=== PATIENT | female | born 1945 | race Caucasian/White ===

== ENCOUNTER → 2017-05-19 | Outpatient (CLI) | payer MEDICARE ==
--- NOTE | 2017-05-20 09:11 | MM ---
Reason for exam: screening (asymptomatic). Last mammogram was performed 1 year and 10 months ago. History: Patient is postmenopausal. Took estrogen for 2 months. Physical Findings: A clinical breast exam by your physician is recommended on an annual basis and results should be correlated with mammographic findings. MG Screening Mammo w CAD Bilateral CC and MLO view(s) were taken. Prior study comparison: July 23, 2015, bilateral MG screening mammo w CAD. May 01, 2009, bilateral digital screening mammogram. The breast tissue is heterogeneously dense. This may lower the sensitivity of mammography. Vascular calcifications. There is no discrete abnormality. No significant changes when compared with prior studies. ASSESSMENT: Benign, BI-RAD 2 RECOMMENDATION: Routine screening mammogram of both breasts in 1 year.
== END | disposition home or self-care (01) ==
LOC: RADMAMWWP 09:00
PROVIDERS: ATTEND Family Medicine
DX: Z12.31 Encounter for screening mammogram for malignant neoplasm of breast (principal)
CPT/HCPCS: 77067

== ENCOUNTER 2019-05-27 19:09 | Emergency (ER) | payer MEDICARE ==
[2019-05-27 19:26] VITALS: RESP 18
[2019-05-27] MEDS ORDERED: SODIUM CHLORIDE 0.9% 1,000 ML IV STA (19:47)
[2019-05-27] MEDS ORDERED: ONDANSETRON 4 MG/2 ML VIAL IVP STA (19:47)
[2019-05-27] MEDS ORDERED: guaiFENesin-DM 600/30MG 1 EACH TAB.ER.12H PO STA (19:47)
[2019-05-27] MEDS ORDERED: ACETAMINOPHEN TAB 500 MG TAB PO STA (20:02)
--- NOTE | 2019-05-27 20:02 | ED ---
Nausea/Vomiting/Diarrhea HPI - General Chief complaint: Nausea/Vomiting/Diarrhea Stated complaint: Vomiting Time Seen by Provider: 05/27/19 19:34 Source: patient, EMS Mode of arrival: EMS Limitations: no limitations - History of Present Illness Initial comments: 74-year-old female patient presents to the emergency department today for evaluation of upper respiratory symptoms and vomiting. Patient states she's been sick since last Wednesday with cough, nasal congestion, sore throat. Patient states she's been having on and off fevers and has been in bed for most of the week. Patient states that over the last couple days she has been vomiting. States she did have 6 episodes of vomiting today. States her stool soft but denies any diarrhea. States that she did seem feverish today as well. Denies taking any medication for her symptoms. Patient states she hasn't eaten or drank anything in the last few days due to symptoms. Patient states the muscles in her abdomen are sore from coughing however she denies any significant abdominal pain. Denies any hematuria, dysuria, urinary frequency, urinary urgency. Patient does have a past medical history significant for diabetes mellitus, hypothyroid, and high blood pressure. States that she is a previous smoker but denies any diagnosis of COPD or emphysema. Patient denies any recent rash, shortness breath, chest pain, abdominal pain, back pain, numbness, tingling, dizziness, weakness, headache, visual changes, or any other complaints. - Related Data Previous Rx's Medication Instructions Recorded Ondansetron [Zofran ODT] 4 mg PO Q8HR PRN #10 tab 05/27/19 Allergies Allergy/AdvReac Type Severity Reaction Status Date / Time Penicillins Allergy Anaphylaxis Verified 05/27/19 20:51 Sulfa (Sulfonamide Allergy Anaphylaxis Verified 05/27/19 20:51 Antibiotics) Review of Systems ROS Statement: Those systems with pertinent positive or pertinent negative responses have been documented in the HPI. ROS Other: All systems not noted in ROS Statement are negative. Past Medical History Past Medical History: CVA/TIA, Diabetes Mellitus, Hyperlipidemia, Hypertension, Memory Impairment, Thyroid Disorder Additional Past Medical History / Comment(s): DM 1984, CVA 2016, TIA's 2018, hypothyroid, shingles History of Any Multi-Drug Resistant Organisms: None Reported Past Surgical History: Appendectomy, Orthopedic Surgery, Tonsillectomy, Tubal Ligation Past Psychological History: No Psychological Hx Reported Smoking Status: Former smoker Past Alcohol Use History: None Reported Past Drug Use History: None Reported General Exam Limitations: no limitations General appearance: alert, in no apparent distress, other (Physical well- developed, well-nourished elderly female patient in no acute distress. Vital signs upon presentation are temperature 99.5F, pulse 71, respirations 18, blood pressure 197/83, pulse ox 99% on room air.) Eye exam: Present: normal appearance, PERRL, EOMI. Absent: scleral icterus, conjunctival injection, periorbital swelling ENT exam: Present: normal exam, normal oropharynx, mucous membranes moist Respiratory exam: Present: normal lung sounds bilaterally. Absent: respiratory distress, wheezes, rales, rhonchi, stridor Cardiovascular Exam: Present: regular rate, normal rhythm, normal heart sounds. Absent: systolic murmur, diastolic murmur, rubs, gallop, clicks GI/Abdominal exam: Present: soft, normal bowel sounds. Absent: distended, tenderness, guarding, rebound, rigid Neurological exam: Present: alert, oriented X3, CN II-XII intact Psychiatric exam: Present: normal affect, normal mood Skin exam: Present: warm, dry, intact, normal color. Absent: rash Course Vital Signs 05/27/19 05/27/19 19:12 22:10 Temperature 99.5 F 97.7 F Pulse Rate 71 64 Respiratory 18 18 Rate Blood Pressure 197/83 173/67 O2 Sat by Pulse 99 98 Oximetry Medical Decision Making - Medical Decision Making 74-year-old female patient presents to the emergency department today for evaluation of upper respiratory symptoms and vomiting. Patient was sick for the last week with upper respiratory symptoms. Over the last 2 days she has had several episodes of vomiting. Physical examination reveals clear equal lung sounds. Abdomen soft and nontender. Labs reviewed and are unremarkable. Chest x-ray shows no acute cardiopulmonary process. Patient did test positive for influenza A. Patient is given IV fluids and cough medication here in the emergency department. Upon reevaluation she does report improvement of sympt oms. Patient states that she is no longer feeling weak. She does feel comfortable being discharged home. She is instructed to increase fluids. Start clear liquid diet and advance as tolerated. She is instructed to take Zofran as needed. Return parameters were discussed in detail patient verbalizes understanding and agrees with this plan. - Lab Data Result diagrams: 05/27/19 20:38 05/27/19 20:38 Lab Results 05/27/19 05/27/19 05/27/19 Range/Units 20:30 20:38 20:38 WBC 2.6 L (3.8-10.6) k/uL RBC 4.08 (3.80-5.40) m/uL Hgb 11.1 L (11.4-16.0) gm/dL Hct 34.4 (34.0-46.0) % MCV 84.3 (80.0-100.0) fL MCH 27.3 (25.0-35.0) pg MCHC 32.4 (31.0-37.0) g/dL RDW 13.5 (11.5-15.5) % Plt Count 254 (150-450) k/uL Neutrophils % 58 % Lymphocytes % 29 % Monocytes % 8 % Eosinophils % 1 % Basophils % 1 % Neutrophils # 1.5 (1.3-7.7) k/uL Lymphocytes # 0.8 L (1.0-4.8) k/uL Monocytes # 0.2 (0-1.0) k/uL Eosinophils # 0.0 (0-0.7) k/uL Basophils # 0.0 (0-0.2) k/uL Sodium 136 L (137-145) mmol/L Potassium 4.5 (3.5-5.1) mmol/L Chloride 105 (98-107) mmol/L Carbon Dioxide 25 (22-30) mmol/L Anion Gap 6 mmol/L BUN 24 H (7-17) mg/dL Creatinine 0.96 (0.52-1.04) mg/dL Est GFR (CKD-EPI)AfAm 67 (>60 ml/min/1.73 sqM) Est GFR (CKD-EPI)NonAf 58 (>60 ml/min/1.73 sqM) Glucose 150 H (74-99) mg/dL Calcium 8.7 (8.4-10.2) mg/dL Total Bilirubin 0.4 (0.2-1.3) mg/dL AST 38 H (14-36) U/L ALT 20 (4-34) U/L Alkaline Phosphatase 88 (38-126) U/L Total Protein 6.5 (6.3-8.2) g/dL Albumin 3.6 (3.5-5.0) g/dL Lipase 52 (23-300) U/L Urine Color Urine Appearance (Clear) Urine pH (5.0-8.0) Ur Specific [place] (1.001-1.035) Urine Protein (Negative) Urine Glucose (UA) (Negative) Urine Ketones (Negative) Urine Blood (Negative) Urine Nitrite (Negative) Urine Bilirubin (Negative) Urine Urobilinogen (<2.0) mg/dL Ur Leukocyte Esterase (Negative) Influenza Type A RNA Detected H (Not Detectd) Influenza Type B (PCR) Not Detected (Not Detectd) 05/27/19 Range/Units 20:48 WBC (3.8-10.6) k/uL RBC (3.80-5.40) m/uL Hgb (11.4-16.0) gm/dL Hct (34.0-46.0) % MCV (80.0-100.0) fL MCH (25.0-35.0) pg MCHC (31.0-37.0) g/dL RDW (11.5-15.5) % Plt Count (150-450) k/uL Neutrophils % % Lymphocytes % % Monocytes % % Eosinophils % % Basophils % % Neutrophils # (1.3-7.7) k/uL Lymphocytes # (1.0-4.8) k/uL Monocytes # (0-1.0) k/uL Eosinophils # (0-0.7) k/uL Basophils # (0-0.2) k/uL Sodium (137-145) mmol/L Potassium (3.5-5.1) mmol/L Chloride (98-107) mmol/L Carbon Dioxide (22-30) mmol/L Anion Gap mmol/L BUN (7-17) mg/dL Creatinine (0.52-1.04) mg/dL Est GFR (CKD-EPI)AfAm (>60 ml/min/1.73 sqM) Est GFR (CKD-EPI)NonAf (>60 ml/min/1.73 sqM) Glucose (74-99) mg/dL Calcium (8.4-10.2) mg/dL Total Bilirubin (0.2-1.3) mg/dL AST (14-36) U/L ALT (4-34) U/L Alkaline Phosphatase (38-126) U/L Total Protein (6.3-8.2) g/dL Albumin (3.5-5.0) g/dL Lipase (23-300) U/L Urine Color Yellow Urine Appearance Clear (Clear) Urine pH 7.0 (5.0-8.0) Ur Specific [place] 1.023 (1.001-1.035) Urine Protein Trace H (Negative) Urine Glucose (UA) 2+ H (Negative) Urine Ketones 2+ H (Negative) Urine Blood Negative (Negative) Urine Nitrite Negative (Negative) Urine Bilirubin Negative (Negative) Urine Urobilinogen <2.0 (<2.0) mg/dL Ur Leukocyte Esterase Negative (Negative) Influenza Type A RNA (Not Detectd) Influenza Type B (PCR) (Not Detectd) - Radiology Data Radiology results: report reviewed, image reviewed Two-view x-ray of the chest was obtained. Slight increased lung markings. No pulmonary consolidation or heart failure. Disposition Clinical Impression: Influenza A, Vomiting Disposition: HOME SELF-CARE Condition: Good Instructions (If sedation given, give patient instructions): Influenza (ED), Acute Nausea and Vomiting (ED) Additional Instructions: Increase fluids. Take Zofran as needed for nausea. Follow-up with your primary care physician for recheck on Wednesday. Return to the emergency department immediately for any new, worsening, or concerning symptoms. Prescriptions: Ondansetron [Zofran ODT] 4 mg PO Q8HR PRN #10 tab PRN Reason: Nausea Is patient prescribed a controlled substance at d/c from ED?: No Referrals: Agus Jay DO [Primary Care Provider] - 1-2 days Time of Disposition: 22:28
--- NOTE | 2019-05-27 20:31 | XR ---
EXAMINATION TYPE: XR chest 2V DATE OF EXAM: 05/27/2019 COMPARISON: NONE HISTORY: Weakness and fever TECHNIQUE: FINDINGS: Heart size is normal. Lungs are clear of consolidation. There is slight coarsening of the l severo markings. Thoracic aorta is atheromatous. There is no pleural effusion. There is no heart failure . IMPRESSION: Slight increased lung markings. No pulmonary consolidation or heart failure.
[2019-05-27 21:05] LABS: Basophils % (A) 1 %; Eosinophils % (A) 1 %; HCT 34.4 % (34.0-46.0); HGB 11.1 gm/dL (11.4-16.0); Lymphocytes # (A) 0.8 k/uL (1.0-4.8); Lymphocytes % (A) 29 %; MCH 27.3 pg (25.0-35.0); MCHC 32.4 g/dL (31.0-37.0); MCV 84.3 fL (80.0-100.0); Monocytes # (A) 0.2 k/uL (0-1.0); Monocytes % (A) 8 %; Neutrophils # (A) 1.5 k/uL (1.3-7.7); Neutrophils % (A) 58 %; Platelet Count 254 k/uL (150-450); RBC 4.08 m/uL (3.80-5.40); RDW 13.5 % (11.5-15.5); WBC 2.6 k/uL (3.8-10.6)
[2019-05-27 21:14] LABS: Albumin 3.6 g/dL (3.5-5.0); Calcium 8.7 mg/dL (8.4-10.2); Potassium 4.5 mmol/L (3.5-5.1); Total Bilirubin 0.4 mg/dL (0.2-1.3); Total Protein 6.5 g/dL (6.3-8.2)
[2019-05-27 21:36] LABS: Appearance,Urine Clear (Clear); Bilirubin,Urine Negative (Negative); Blood,Urine Negative (Negative); Color,Urine Yellow; Glucose,Urine (UA) 2+ (Negative); Leukocyte Esterase,Urine Negative (Negative); Nitrite,Urine Negative (Negative); Protein,Urine Trace (Negative); Specific Gravity,Urine 1.023 (1.001-1.035); Urobilinogen,Urine <2.0 mg/dL (<2.0)
[2019-05-27] MEDS ORDERED: SODIUM CHLORIDE 0.9% 500 ML 500 ML IV ONE (21:51)
[2019-05-27 21:53] LABS: Ketones,Urine 2+ (Negative)
[2019-05-27 22:11] VITALS: BP 173/67; PULSE 64; TEMP 97.7
[2019-05-27] MEDS ORDERED: ONDANSETRON 4 MG ODT STARTER PACK 2 TAB BTL PO STA (22:28)
== END 2019-05-27 22:55 | disposition home or self-care (01) ==
LOC: EC 19:09
DX: J10.1 Influenza due to other identified influenza virus with other respiratory manifestations (principal); E11.9 Type 2 diabetes mellitus without complications; I10 Essential (primary) hypertension; E03.9 Hypothyroidism, unspecified; E78.5 Hyperlipidemia, unspecified; Z88.0 Allergy status to penicillin; Z88.2 Allergy status to sulfonamides; Z87.891 Personal history of nicotine dependence; Z86.73 Personal history of transient ischemic attack (TIA), and cerebral infarction without residual deficits
CPT/HCPCS: 36415; 80053; 83690; 85025; 81003; 87502; 71046; 99284; 96360; 96361; S0119

== ENCOUNTER → 2020-02-29 | Outpatient (CLI) | payer MEDICARE | END | disposition home or self-care (01) | LOC: LABWHC1 14:54 | PROVIDERS: ATTEND Family Medicine | DX: Z20.828 Contact with and (suspected) exposure to other viral communicable diseases (principal) | CPT/HCPCS: U0003; C9803 ==

== ENCOUNTER → 2020-05-23 | Outpatient (CLI) | payer MEDICARE ==
[2020-05-31 11:09] LABS: Potassium 5.3
[2020-05-31 11:10] LABS: Carbon Dioxide 25.4
[2020-05-31 11:11] LABS: Anion Gap 10.6
[2020-05-31 11:12] LABS: BUN/Creat Ratio 18.75; WBC 4.44
[2020-05-31 11:13] LABS: Calcium 9.6; HGB 10.7; RBC 3.84; Total Protein 6.6
[2020-05-31 11:14] LABS: Albumin 4.4; Globulin 2.2; HCT 35.2; MCV 91.7
[2020-05-31 11:15] LABS: MCH 27.9; MCHC 30.4; Total Bilirubin 0.2
[2020-05-31 11:16] LABS: Platelet Count 310; RDW 14.6
[2020-05-31 11:19] LABS: African American GFR (CKD) 35.9; Non-African American GFR(CKD) 31.2
[2020-05-31 11:20] LABS: Lymphocytes % (A) 28.4; Monocytes % (A) 8.8; Neutrophils % (A) 51.8
[2020-05-31 11:21] LABS: Basophils % (A) 1.6; Eosinophils % (A) 9.2
[2020-05-31 11:22] LABS: Lymphocytes # (A) 1.26
[2020-05-31 11:23] LABS: Eosinophils # (A) 0.41; Monocytes # (A) 0.39
[2020-05-31 11:24] LABS: Basophils # (A) 0.07
== END | disposition home or self-care (01) ==
LOC: LABWHC1 09:50
PROVIDERS: ATTEND Nurse Practitioner Family
DX: E11.40 Type 2 diabetes mellitus with diabetic neuropathy, unspecified (principal)
CPT/HCPCS: 36415; 80053; 83036; 85025

== ENCOUNTER 2020-06-07 08:14 | Day surgery (SDC) | payer MEDICARE ==
[~2020-06-07 08:14] MED LIST: ASPIRIN 325 MG TAB PO PRN; HEPARIN SODIUM,PORCINE 10,000 UNIT in SODIUM CHLORIDE 0.9% 1,000 ML IRRIGATION PRN; HEPARIN SODIUM,PORCINE 2,500 UNIT in SODIUM CHLORIDE 0.9% 250 ML IRRIGATION PRN
[2020-06-07] MEDS ORDERED: ZOLPIDEM 5 MG TAB PO PRN (08:39)
[2020-06-07] MEDS ORDERED: ALPRAZolam 0.25 MG TAB PO PRN (08:39)
[2020-06-07] MEDS ORDERED: SODIUM CHLORIDE 0.9% 1,000 ML in EMPTY BAG 1 BAG IV ONE (08:39)
[2020-06-07] MEDS ORDERED: ASPIRIN 81 MG ONE (09:22)
[2020-06-07 09:47] LABS: Glucose,Whole Blood 105 mg/dL (75-99)
[2020-06-07 10:26] VITALS: RESP 16
[2020-06-07] MEDS ORDERED: SODIUM CHLORIDE 0.9% 1,000 ML IV ONE (10:33)
[2020-06-07] MEDS ORDERED: MIDAZOLAM 2 MG/2 ML VIAL IVP ONE (11:25)
[2020-06-07] MEDS ORDERED: fentaNYL (PF) 50 MCG/ML 2 ML AMP IVP ONE (11:25)
[2020-06-07] MEDS ORDERED: LIDOCAINE 1% INJ 10MG/ML (20 ML MDV) SQ ONE (11:29)
[2020-06-07] MEDS ORDERED: HEPARIN SODIUM 1,000 UN/ML (10ML VL) IV ONE (12:00)
[2020-06-07] MEDS ORDERED: CLOPIDOGREL 75 MG TAB PO ONE (12:18)
[2020-06-07] MEDS ORDERED: fentaNYL (PF) 50 MCG/ML 2 ML AMP IV ONE (12:20)
[2020-06-07] MEDS ORDERED: CLINDAMYCIN 600 MG in DEXTROSE 5% IN WATER 50 ML IVPB STA ×2 (12:28)
[2020-06-07] MEDS ORDERED: IOPAMIDOL-250 50ML BTL INTRAARTER ONE (12:36)
[2020-06-07] MEDS ORDERED: IOPAMIDOL-250 100ML BTL INTRAARTER ONE ×2 (12:36)
--- NOTE | 2020-06-07 12:52 | IR ---
EXAMINATION TYPE: IR port captain femoral popliteal DATE OF EXAM: 06/07/2020 COMPARISON: NONE HISTORY: Fluoroscopy time. Fluoroscopy was provided to the referring clinician.
[2020-06-07] MEDS ORDERED: ONDANSETRON ODT 4 MG TAB PO PRN (13:30)
[2020-06-07] MEDS: SODIUM CHLORIDE 0.9% 1,000 ML IV SCH ×2 (13:32→23:34)
[2020-06-07] MEDS ORDERED: SODIUM CHLORIDE 0.9% 1,000 ML in EMPTY BAG 1 BAG IV SCH (13:45)
[2020-06-07 17:38] LABS: Glucose,Whole Blood 139 mg/dL (75-99)
[2020-06-07] MEDS: INSULIN ASPART (NovoLOG) 100 UNIT/ML VIAL SQ SCH ×2 (17:54→21:00)
[2020-06-07 20:49] LABS: Glucose,Whole Blood 53 mg/dL (75-99)
--- NOTE | 2020-06-07 20:56 | P.PCN ---
Description of Procedure: PROCEDURES PERFORMED: Pelvic angiography, selective right lower extremity angiography, drug coated balloon angioplasty with a 5.0 x 120mm DCB. INDICATION: CLI, [place] 5, abnormal ultrasound, nonhealing wound, DM2 HISTORY: Patient is a pleasant 75 showed female with history of hypertension, chronic kidney disease, long-standing diabetes mellitus type 2 for over 30 years, stroke 3-4 years ago and recently diagnosed PAD with nonhealing wound. She has been having a nonhealing wound of her right fifth digit and medial heel for the past 2 months. She has been having claudication-type symptoms for the last 5-6 years in both legs however now has pain at rest in both legs. Patient leave that she initially stopped her toe however this has not healed and has become more red and painful. She was tried on antibiotics, Keflex, however could not tolerate these. She had an ultrasound performed from Dr. Dunlap's office with an WALE on the right of 0.64 and concern of below the knee occlusions with poor flow noted below the knee. Therefore recommendation was made regarding possible angiography and peripheral intervention if indicated. She was also placed on outpatient antibiotics which she has not picked up yet. CONSENT:I have discussed the risks, benefits and alternative therapies for the above-mentioned procedure and for both sedation/analgesia as well as necessary blood product administration, if indicated, as they pertain to this patient. The patient has indicated understanding and acceptance of the risks and procedures discussed. PROCEDURE: After the risks, benefits and alternatives of the above mentioned procedure explained in detail with the patient, informed consent was obtained. Patient was taken to the catheterization lab and prepped and draped in usual fashion. 1% lidocaine was used to anesthetize the left femoral area. A 5- Scottish sheath was placed in the left femoral artery using modified Seldinger technique, ultrasound guidance, and micropuncture technique. A 5-Scottish pigtail catheter was inserted to the distal aorta and DSA imaging was obtained. Contrast and images were limited in order to conserve contrast usage. The 5- Scottish sheath was exchanged for a destination sheath and was placed in the distal right external iliac with the help of a rim catheter and 0.035 stiff glide wire. Next selective right lower extremity angiography was performed. Next, the decision was made to perform intervention of right popliteal artery. IV heparin was given. The 0.035 stiff glide wire was used to cross the lesion. Balloon angioplasty was performed with a 4.0 x 80mm balloon. Next a 5 x 120mm drug coated balloon was advanced to the lesion and deployed for 3 minutes. The wire was then pulled. Final angiograms were performed. Pre intervention there was 99% stenosis with incomplete, delayed distal flow. Post intervention there was <10% stenosis, no dissection and complete flow. No runoff was performed as patient had significant CKD. A left femoral angiogram was performed. The sheath was sutrued in place to be pulled after the procedure. The patient tolerated the procedure well. Patient was transported back to the post catheterization holding area in stable condition. Conscious Sedation: Patient was monitored under the direct supervision of vision of myself for conscious sedation using Versed and fentanyl for a total duration of 66 minutes HEMODYNAMICS: 144/78 Pelvic aorta: The pelvic aorta has mild calcifcation. There is no significant dissection or aneurysm. There is no significant stenosis. Right lower extremity: Right common iliac artery: There is no significant stenosis. Right external iliac artery: There is no significant stenosis. Right internal iliac artery: There is no significant stenosis. Right common femoral artery: There is no significant stenosis. Right profunda: There is no significant stenosis. Right SFA: There is no significant stenosis. Right popliteal artery: There is a long proximal to mid, P1-P2 calcified 99% stenosis with delayed distal perfusion. Right tibioperoneal trunk: There is no significant stenosis. Right anterior tibial artery: There is no significant stenosis, however there is poor flow noted to the dorsalis pedis, unclear if related to more proximal disease or a stenosis at the distal AT. Right porterior tibial artery: There is 100% stenosis at the proximal PT. Right peroneal artery: There is mild to moderate diffuse disease. Left lower extremity: Left common iliac artery: There is no significant stenosis. Left external iliac artery: There is no significant stenosis. Left internal iliac artery: There is no significant stenosis. Left common femoral artery: There is no significant stenosis. Left profunda: Not visualized Left SFA: Not visualized Left popliteal artery: Not visualized Left tibioperoneal trunk: Not visualized Left anterior tibial artery: Not visualized Left porterior tibial artery: Not visualized Left peroneal artery: Not visualized FINAL IMPRESSION: 1. Peripheral arterial disease as described above including 99% right popliteal stenosis, 100% proximal right PT, and possible severe stenosis of the distal right AT. 2. CLI, [place] 5 with nonhealing right 5th toe ulcer and right medial heel ulcers with surrounding cellulitis. 3. CKD 3b 4. S/p successful drug coated balloon angioplasty of proximal to mid right popliteal artery with a 5.0 x 120mm DCB PLAN: 1. Aggressive risk factor modification per most recent ACC/AHA guidelines. 2. Continue IVF and monitor Cr. Continue antibiotics. 3. Would monitor response of popliteal intervention. If patient still with poor healing may consider reintervention of below the knee PT or distal AT however would expect improved healing with intervention. 4. If patient with persistent left claudication, may consider furture angiography and possible intervention of left lower extremity. 5. Likely discharge home tomorrow morning on home meds plus Plavix and Clindamycin.
[2020-06-07] MEDS: INSULIN DETEMIR (LEVEMIR) 100 UNIT/ML SYR SQ SCH ×2 (21:00→23:34)
[2020-06-07] MEDS ORDERED: ATORVASTATIN 10 MG TAB PO SCH (21:00)
[2020-06-07 21:04] LABS: Glucose,Whole Blood 56 mg/dL (75-99)
[2020-06-07] MEDS: CLINDAMYCIN 600 MG in DEXTROSE 5% IN WATER 50 ML IVPB SCH ×2 (21:12)
[2020-06-07 21:18] LABS: Glucose,Whole Blood 70 mg/dL (75-99)
[2020-06-07 23:11] LABS: Glucose,Whole Blood 168 mg/dL (75-99)
[2020-06-08] MEDS: CLINDAMYCIN 600 MG in DEXTROSE 5% IN WATER 50 ML IVPB SCH ×2 (05:52)
[2020-06-08 07:03] LABS: Glucose,Whole Blood 176 mg/dL (75-99)
[2020-06-08 07:22] VITALS: BP 126/55; PULSE 69; TEMP 98
[2020-06-08] MEDS: INSULIN ASPART (NovoLOG) 100 UNIT/ML VIAL SQ SCH (08:21)
[2020-06-08] MEDS ORDERED: lisinopriL 5 MG TAB PO SCH (09:00)
[2020-06-08] MEDS ORDERED: CLOPIDOGREL 75 MG TAB PO SCH (09:00)
[2020-06-08] MEDS ORDERED: PANTOPRAZOLE 40 MG TABLET PO SCH (09:00)
[2020-06-08] MEDS ORDERED: EZETIMIBE 10 MG TAB PO SCH (09:00)
[2020-06-08] MEDS ORDERED: ASPIRIN 81 MG PO SCH ×2 (09:00)
--- NOTE | 2020-06-08 15:20 | DS ---
DISCHARGE SUMMARY Rosibel Robledo underwent a peripheral vascular intervention procedure by Dr. Bernstein. She is doing well. Her left groin is clean and dry. Vital signs stable. No JVD. S1, S2 heard normally. Lungs are clear. Abdomen and lower extremity exam unchanged. Distal pulses are diminished. Her procedure site is clean and dry. I am recommending she can be discharged. She will be going on antibiotics and Plavix and aspirin. Instructions were given. Medication prescriptions were given. She will see Dr. Bernstein in one week. She can be discharged today. All questions were answered. Discharge instructions were given. MMODL / IJN: [id number] /
== END 2020-06-08 11:05 | disposition home or self-care (01) ==
LOC: CATHCVL 08:14 → 6NMEDSUR 12:51 → CATHCVL 06-08 11:05
PROVIDERS: ATTEND Internal Medicine
DX: I70.221 Atherosclerosis of native arteries of extremities with rest pain, right leg (principal); E11.51 Type 2 diabetes mellitus with diabetic peripheral angiopathy without gangrene; I70.235 Atherosclerosis of native arteries of right leg with ulceration of other part of foot; L97.519 Non-pressure chronic ulcer of other part of right foot with unspecified severity; I70.234 Atherosclerosis of native arteries of right leg with ulceration of heel and midfoot; L97.419 Non-pressure chronic ulcer of right heel and midfoot with unspecified severity; E11.621 Type 2 diabetes mellitus with foot ulcer; E11.22 Type 2 diabetes mellitus with diabetic chronic kidney disease; I12.9 Hypertensive chronic kidney disease with stage 1 through stage 4 chronic kidney disease, or unspecified chronic kidney disease; N18.32 Chronic kidney disease, stage 3b; E78.5 Hyperlipidemia, unspecified; D64.9 Anemia, unspecified; Z86.73 Personal history of transient ischemic attack (TIA), and cerebral infarction without residual deficits; Z79.4 Long term (current) use of insulin; Z79.890 Hormone replacement therapy; Z79.899 Other long term (current) drug therapy; Z79.82 Long term (current) use of aspirin; Z88.1 Allergy status to other antibiotic agents; Z88.8 Allergy status to other drugs, medicaments and biological substances; Z88.0 Allergy status to penicillin; Z88.2 Allergy status to sulfonamides
CPT/HCPCS: 76937; 36246; 37224; 75625; 75710; 85347; 82565; C1769 ×5; C1894 ×3; C1725; C2623; J2250; J2001; J3010; J1644; Q9966 ×2

== ENCOUNTER → 2020-07-01 | Outpatient (CLI) | payer MEDICARE ==
[2020-07-01 15:21] LABS: Chol/HDL Ratio 4.59; LDL Cholesterol,Calculated 121.8 mg/dL (0.0-131.0); VLDL Calculation 43.2 mg/dL (5.00-40.00)
== END | disposition home or self-care (01) ==
LOC: LABWHC1 09:32
PROVIDERS: ATTEND Internal Medicine
DX: E78.5 Hyperlipidemia, unspecified (principal); I73.9 Peripheral vascular disease, unspecified
CPT/HCPCS: 36415; 80061

== ENCOUNTER → 2021-11-18 | Outpatient (CLI) | payer MEDICARE ==
[2021-11-18 15:01] LABS: HCT 33.3 % (37.2-46.3); HGB 10.7 g/dL (12.0-15.0); MCH 29.3 pg (27.0-32.0); MCHC 32.1 g/dL (32.0-37.0); MCV 91.2 fL (80.0-97.0); Mean Platelet Volume 11.9 fL (9.5-12.2); NRBC Per 100 WBC 0 /100 WBCS (0.0-0.0); Platelet Count 284 X 10*3/uL (140-440); RBC 3.65 X 10*6/uL (4.10-5.20); RDW 13.8 % (11.5-14.5); WBC 5.45 X 10*3/uL (4.50-10.00)
[2021-11-18 15:14] LABS: African American GFR (CKD) 50.5 (60.0-200.0); Anion Gap 11.1 mmol/L (10.00-18.00); BUN/Creat Ratio 18.33 Ratio (12.00-20.00); Calcium 9.5 mg/dL (8.7-10.3); Carbon Dioxide 24.9 mmol/L (20.0-27.5); Non-African American GFR(CKD) 43.6 (60.0-200.0)
== END | disposition home or self-care (01) ==
LOC: LABWHC1 08:36
PROVIDERS: ATTEND Registered Nurse
DX: D64.9 Anemia, unspecified (principal); M62.82 Rhabdomyolysis; R97.8 Other abnormal tumor markers
CPT/HCPCS: 36415; 80048; 85027

== ENCOUNTER → 2024-03-30 | Outpatient (CLI) | payer MEDICARE ==
--- NOTE | 2024-03-30 19:39 | CT ---
EXAMINATION TYPE: CT lower extremity RT wo con DATE OF EXAM: 03/30/2024 6:57 PM COMPARISON: . None CLINICAL INDICATION: Female, 79 years old with history of S82.131D DISPLACED FX TIBIA; PHH, Evaluatio n of displaced fx of RT Tibia for possible surgical planning. Pain TECHNIQUE: Axial images were obtained of the CT lower extremity RT wo con, Additional coronal and sag ittal reformatted images and soft tissue and bone window were obtained for review. 3-D reconstruction was created on a separate workstation. Contrast used: mL of , (None if empty) Oral contrast used: (None if empty) CT DLP: 618.3 mGycm, Automated exposure control for dose reduction was used. FINDINGS: Mild degeneration changes of the knee with osteophyte patient positioning. There is cortica l buckling/sclerosis of the tibial plateau along the medial/posterior aspect with minimal depression of the articular surface less than 1 mm series 7 image 30. The fibula and femur appear intact. The patella is intact. Small joint effusion present. Severe atherosclerosis of the arterial vasculature. Edema throughout the knee soft tissues. IMPRESSION : Intra-articular tibial plateau fracture of the medial/posterior tibia with minimal depression of the articular surface. There is is associated soft tissue swelling and joint effusion. [facility], , 03/30/2024 7:36 PM
== END | disposition home or self-care (01) ==
LOC: RADCTMAIN 18:18
PROVIDERS: ATTEND Orthopaedic Surgery
DX: S82.131D Displaced fracture of medial condyle of right tibia, subsequent encounter for closed fracture with routine healing (principal)